=== PATIENT | female | born 1960 | race Caucasian/White ===

== ENCOUNTER 2018-12-14 14:44 | Outpatient (CLI) | payer SELFPAY ==
--- NOTE | 2018-12-14 19:07 | RAD ---
RIGHT FOOT THREE VIEWS: 12/14/18 No acute fracture was seen. No periosteal reaction was present. There may have been old trauma to th e second metatarsal head. A large calcaneal spur was present. IMPRESSION: No acute finding. POS: HOME
--- NOTE | 2018-12-14 19:08 | RAD ---
RIGHT KNEE FOUR VIEWS: 12/14/18 Some mild degenerative change is present consisting of slight lateral joint space narrowing and osteo phytes. Some tiny Patellofemoral osteophytes are noted. No fracture or joint effusion was seen. IMPRESSION: Very minor degenerative change. POS: HOME
== END 2018-12-14 14:45 | disposition home or self-care (01) ==
LOC: BURRAD 14:44
PROVIDERS: ATTEND Family Medicine
DX: M25.561 Pain in right knee (principal); M79.671 Pain in right foot; M17.11 Unilateral primary osteoarthritis, right knee